=== PATIENT | male | born 1935 | race Caucasian/White ===

== ENCOUNTER 2016-12-14 17:11 | Emergency (ER) | payer OTHER ==
[2016-12-14 16:14] LABS: BASOPHILS 0.3 %; BASOPHILS ABSOLUTE 0.02 10/3/uL (0.0-0.16); EOSINOPHILS 2.2 %; EOSINOPHILS ABSOLUTE 0.16 10/3/uL (0.0-0.53); ER CBC TAT 0 Hrs 08 Mins; HEMATOCRIT 41.3 % (40.0-51.0); HEMOGLOBIN 14.3 g/dL (13.6-17.8); IMMATURE GRANULOCYTES 0.1 %; IMMATURE GRANULOCYTES ABSOLUTE 0.01 10/3/uL (0.0-0.11); LYMPHOCYTES 30.9 %; MEAN CORPUS HGB CONC 34.6 g/dL (32.0-36.0); MEAN CORPUSCULAR HEMOGLOB 33.5 pg (26.0-34.0); MEAN CORPUSCULAR VOLUME 96.7 fL (80-100); MEAN PLATELET VOLUME 9.1 fL (9.2-13.0); MONOCYTES 9.4 %; MONOCYTES ABSOLUTE 0.67 10/3/uL (0.21-1.20); NEUTROPHILS 57.1 %; NEUTROPHILS ABSOLUTE 4.06 10/3/uL (2.02-8.40); PLATELET COUNT 217 10/3/uL (150-400); RBC DISTRIBUTION WIDTH 12.8 % (12.0-16.0); RED CELL COUNT 4.27 10/6/uL (4.7-6.1); WHITE BLOOD CELLS 7.1 10/3/uL (4.5-10.5)
[2016-12-14 16:25] LABS: BUN (BLOOD UREA NITROGEN) 23 MG/DL (6-23); CALCIUM, SERUM 8.9 MG/DL (8.5-10.4); CHEST PAIN PROFILE TAT 0 Hrs 19 Mins; CHLORIDE, SERUM 101 MMOL/L (96-112); CO2 (CARBON DIOXIDE) 29 MMOL/L (24-34); CREATININE 1.05 MG/DL (0.70-1.30); GFR AFRICAN AMERICAN 77 ML/MIN (>=60); GFR NON AFRICAN AMERICAN 66 ML/MIN (>=60); GLUCOSE, SERUM 89 MG/DL (60-99); INTERNATIONAL NORMAL RATI 1.2 UNITS (-); PARTIAL THROMBO TIME 34.4 SEC (22.5-37.2); POTASSIUM, SERUM 4.3 MMOL/L (3.5-5.3); PROTIME (NOT ORD) 15.1 SEC (12.0-14.5); SODIUM, SERUM 137 MMOL/L (135-148); TROPONIN I 0.08 NG/ML (<0.05)
[~2016-12-14 17:11] MED LIST: ABILIFY5 PO; ATROVENTUD INH; BYSTOLIC10 MG PO; CLARIT10 PO; COREG6 PO; DCN100 PO; FENESIN IR400 MG PO; FLOMAX4 PO; FLONASE NAS; KLOR-CON 1010 MEQ PO; L20 PO; LEVITRA5 PO; MULTIPLE VIT PO; NITROSTAT0.4 MG SL; NIZORALCRM TOP; NORCO1 TA1 PO; NORV10 PO; PLAVIX PO; PRIN20 PO; PROSCAR5 PO; PROVENTSOL INH; PROVHFA INH; SEREVDISC INH; SPIRO25 PO; STOOL SOFTEN240 MG PO; SYMBICORT 160/41 INH INH; SYN.05 PO; THERA-GESI1 EX; VIAGRA100 MG PO; Z100 PO; ZOCOR20 PO
== END 2016-12-14 22:27 | disposition home or self-care (01) ==
LOC: ER 17:11
PROVIDERS: Emergency Medicine
DX: I25.10 Atherosclerotic heart disease of native coronary artery without angina pectoris (principal); I10 Essential (primary) hypertension; I50.9 Heart failure, unspecified; Z98.61 Coronary angioplasty status; Z87.891 Personal history of nicotine dependence; Z88.6 Allergy status to analgesic agent; Z88.0 Allergy status to penicillin; Z91.041 Radiographic dye allergy status; Z88.1 Allergy status to other antibiotic agents; Z88.8 Allergy status to other drugs, medicaments and biological substances; Z79.899 Other long term (current) drug therapy
CPT/HCPCS: 71275; 80048; 83735; 84484; 85025; 85610; 85730; 93005; 96374; 96375; 96376; 99285; J1200; J2920; Q9967